=== PATIENT | male | born 1975 | race Caucasian/White ===

== ENCOUNTER 2016-09-08 18:23 | Emergency (ER) | payer SELFPAY ==
[2016-09-08] MEDS ORDERED: Ketorolac 60 MG/2 ML SDV IM ONE (18:42)
--- NOTE | 2016-09-08 18:47 | EDM.PDOC ---
Addendum entered and electronically signed by Ana Parry PA 09/08/16 19:35: I saw the patient and discussed the xray findings with him. There was no evidence of fracture. Symptoms more consistent with foot contusion. We discussed additional home management and possible follow up with podiatry if needed. The patient had no additional concerns or requests and was comfortable with diagnosis and plan. Original Note: ED HPI Trauma - General Chief Complaint: Lower Extremity Injury/Pain Stated Complaint: PT HURT RT FOOT Time Seen by Provider: 09/08/16 18:34 - History of Present Illness INITIAL COMMENTS - FREE TEXT/NARRATIVE: HISTORY AND PHYSICAL: History of present illness: The patient is a 40-year-old male with no stated medical problems who was in his usual state of good health when on Wednesday, 2 days ago, he was carrying a small table at home and he dropped it on his beer right foot. he had immediate pain and it seemed to be better by Wednesday night. The patient states that he took some Tylenol and he tried ice and elevate it. Patient denies any other injuries to his extremities and no other systemic complaints. He has no neurosensory changes in his foot or toes. He said he returned to work yesterday and had to wear steel toe boots and it seemed that after yesterday at work the pain seemed to be worse and that continued into today. Review of systems: As per history of present illness and below otherwise all systems reviewed and negative. Past medical history: As per history of present illness and as reviewed below otherwise noncontributory. Surgical history: As per history of present illness and as reviewed below otherwise noncontributory. Social history: No reported history of drug or alcohol abuse. Family history: As per history of present illness and as reviewed below otherwise noncontributory. Physical exam: General: Well-developed well-nourished man who is nontoxic and speaking clearly and easily ; vital signs as noted by me HEENT: Atraumatic, normocephalic, negative for conjunctival pallor or scleral icterus, mucous membranes moist, throat clear, neck supple, nontender, trachea midline. Lungs: Clear to auscultation, breath sounds equal bilaterally, chest nontender. Heart: S1S2, regular rate and rhythm no overt murmurs Abdomen: Soft, nondistended, nontender. NABS Pelvis: Stable nontender. Genitourinary: Deferred. Rectal: Deferred. Extremities: Atraumatic throughout lower extremities with the exception of the dorsal aspect of the right foot where there is minimal soft tissue swelling and tenderness without palpable bony deformities or crepitus and minimal erythema without ecchymosis. The distal toes are without tenderness or defects in the proximal ankle and tib-fib are also without tenderness swelling or bony deformities, the legs are, negative for cords or calf pain. Neurovascular unremarkable. Neuro: Awake, alert, oriented. Cranial nerves II through XII unremarkable. Cerebellum unremarkable. Motor and sensory unremarkable throughout. Exam nonfocal. Diagnostics: X-ray of right foot Therapeutics: Toradol, postop shoe Impression: Right foot injury/contusion Definitive disposition and diagnosis as appropriate pending reevaluation and review of above. Allergies/ADRs: Allergies No Known Allergies Allergy (Verified 09/08/16 18:40) Home Medications: Ambulatory Orders . [No Known Home Meds] 09/08/16 [Confirmed 09/08/16] Past Medical History - Past Health History Medical/Surgical History: Denies Medical/Surgical History - Infectious Disease History Infectious Disease History: Reports: Chicken pox Social & Family History - Family History Family Medical History: Noncontributory - Tobacco Use Smoking Status *Q: Never Smoker - Caffeine Use Caffeine Use: Reports: None - Recreational Drug Use Recreational Drug Use: No Review of Systems - Review of Systems Review Of Systems: ROS reveals no pertinent complaints other than HPI. Trauma Exam - Physical Exam Exam: See Below (See dictation) Course - Vital Signs Last Recorded V/S: Last Vital Signs Temp 37.0 C 09/08/16 18:37 Pulse 66 09/08/16 18:37 Resp 18 09/08/16 18:37 BP 141/77 H 09/08/16 18:37 Pulse Ox 94 L 09/08/16 18:37 - Orders/Labs/Meds Orders: Active Orders 24 hr Category Date Time Status Foot Comp Min 3V Rt [CR] Stat Exams 09/08/16 18:42 Ordered Meds: Medications Discontinued Medications Generic Name Dose Route Start Last Admin Trade Name Freq PRN Reason Stop Dose Admin Ketorolac Tromethamine 60 mg 09/08/16 18:42 09/08/16 18:49 Toradol IM 09/08/16 18:43 60 mg ONETIME ONE Administration Departure - Departure Time of Disposition: 19:06 Disposition: Home, Self-Care 01 Condition: good Clinical Impression: Right foot injury Qualifiers: Encounter type: initial encounter Qualified Code(s): S99.921A - Unspecified injury of right foot, initial encounter Referrals: PCP,None [Primary Care Provider] - Forms: ED Department Discharge Additional Instructions: The following information is given to patients seen in the emergency department who are being discharged to home. This information is to outline your options for follow-up care. We provide all patients seen in our emergency department with a follow-up referral. The need for follow-up, as well as the timing and circumstances, are variable depending upon the specifics of your emergency department visit. If you don't have a primary care physician on staff, we will provide you with a referral. We always advise you to contact your personal physician following an emergency department visit to inform them of the circumstance of the visit and for follow-up with them and/or the need for any referrals to a consulting specialist. The emergency department will also refer you to a specialist when appropriate. This referral assures that you have the opportunity for followup care with a specialist. All of these measure are taken in an effort to provide you with optimal care, which includes your followup. Under all circumstances we always encourage you to contact your private physician who remains a resource for coordinating your care. When calling for followup care, please make the office aware that this follow-up is from your recent emergency room visit. If for any reason you are refused follow-up, please contact the [facility] emergency department at and ask to speak to the emergency department charge nurse. [facility] Primary care- Internal Medicine and Family Pr[facility] [address] [place] [address] Richie Jose [address] [address] [facility] Specialty clinic- Podiatry [address] [place] [address] Fax: [phone] Ice and elevate the area and use postop shoe while at work. Use over-the- counter Tylenol/ibuprofen for pain and followup with one of our podiatrists or your family using resources given to today. Return to ER as needed and as discussed. - My Orders Last 24 Hours: My Active Orders 09/08/16 18:42 Foot Comp Min 3V Rt [CR] Stat - Assessment/Plan Last 24 Hours: My Active Orders 09/08/16 18:42 Foot Comp Min 3V Rt [CR] Stat
[2016-09-08 19:53] VITALS: BP 120/74
--- NOTE | 2016-09-09 14:45 | CR ---
EXAM DATE: 09/08/16 PATIENT'S AGE: 40 Patient: ALEXANDRA GÓMEZ Facility: [place], [place] Site . Site : 1975 Study: XRay Extremity foot [id number]/21/2017 7:19:29 PM Ordering Physician: Johana Mendez Final Report: INDICATION: Object dropped on foot. Technique: Three views of the right foot. Impression: Lateral view suggests some proximal dorsal swelling. Correlate with clinical exam. No displaced fractures of the right foot are visualized. Alignment of the right foot appear normal. Dictated by Henri Swan MD @ Sep 08 2016 7:28PM (Electronic Signature) Report Signed by Proxy and Original Signed Document filed in the Medical Record. MTDD
== END 2016-09-08 19:50 | disposition home or self-care (01) ==
LOC: MW.ED 18:23
DX: S99.921A Unspecified injury of right foot, initial encounter (principal); W20.8XXA Other cause of strike by thrown, projected or falling object, initial encounter
CPT/HCPCS: 73630; 96372; 99283; J1885

== ENCOUNTER → 2016-09-29 | Outpatient (CLI) | payer SELFPAY ==
[2016-09-29 11:46] LABS: CHLORIDE,CL 103 mmol/L (98-110); SODIUM,NA 136 mmol/L (136-146)
== END ==
LOC: MW.CHFP 10:58
PROVIDERS: ATTEND Physician Assistant
DX: R11.2 Nausea with vomiting, unspecified (principal); J02.9 Acute pharyngitis, unspecified
CPT/HCPCS: 36415; 80048; 80076; 83690; 85025; 87081; 87880

== ENCOUNTER 2017-07-05 16:15 | Emergency (ER) | payer SELFPAY ==
[2017-07-05] MEDS ORDERED: methylPREDNISolone Sodium Succinate 125 MG/2 ML SDV IM ONE (17:25)
[2017-07-05] MEDS ORDERED: methylPREDNISolone Sodium Succinate 125 MG/2 ML SDV ONE (17:40)
--- NOTE | 2017-07-05 17:46 | EDM.PDOC ---
ED HPI GENERAL MEDICAL PROBLEM - General Chief Complaint: Skin Complaint Stated Complaint: RASH Time Seen by Provider: 07/05/17 17:20 Source of Information: Reports: Patient History Limitations: Reports: No Limitations - History of Present Illness INITIAL COMMENTS - FREE TEXT/NARRATIVE: HISTORY AND PHYSICAL: History of present illness: [Patient comes to the emergency room complaining of rash to bilateral inner forearms. Has been present for the past 3 days. He describes this as very itchy area no fever or chills. No other complaints or concerns. He's otherwise been feeling well. Recently was diagnosed with ringworm to the dorsum of his left hand which has completely resolved. Denies any new body wash, soap, laundry detergent or lotion.] Review of systems: As per history of present illness and below otherwise all systems reviewed and negative. Past medical history: As per history of present illness and as reviewed below otherwise noncontributory. Surgical history: As per history of present illness and as reviewed below otherwise noncontributory. Social history: No reported history of drug or alcohol abuse. Family history: As per history of present illness and as reviewed below otherwise noncontributory. Physical exam: HEENT: Atraumatic, normocephalic. Skin: Maculopapular erythematous blanching rash to bilateral inner forearms. Nontender with palpation. Secondary changes present due to scratching. No dry flaky skin in order weeping of lesions. Neurovascular unremarkable. Neuro: Awake, alert, oriented. Cranial nerves II through XII unremarkable. Cerebellum unremarkable. Motor and sensory unremarkable throughout. Exam nonfocal. Therapeutics: [Solu-Medrol 125mg IM] Impression: [rash] Plan: [Patient is given Solu-Medrol 125 mg IM in the ER today. Recommend over-the- counter hydrocortisone cream to affected area. Follow-up with primary care. He is in agreement with today's plan verbalized understanding.] Definitive disposition and diagnosis as appropriate pending reevaluation and review of above. Bilateral Arm Pain Score (Numeric/FACES): 3 - Related Data Allergies Allergy/AdvReac Type Severity Reaction Status Date / Time No Known Allergies Allergy Verified 07/05/17 17:01 Home Meds: Home Meds . [No Known Home Meds] 09/08/16 [History] Past Medical History - Past Health History Medical/Surgical History: Denies Medical/Surgical History - Infectious Disease History Infectious Disease History: Reports: Chicken Pox Social & Family History - Family History Family Medical History: Noncontributory - Tobacco Use Smoking Status *Q: Never Smoker - Caffeine Use Caffeine Use: Reports: Energy Drinks, Soda - Recreational Drug Use Recreational Drug Use: No ED ROS GENERAL - Review of Systems Review Of Systems: ROS reveals no pertinent complaints other than HPI. ED EXAM, SKIN/RASH Exam: See Below Course - Vital Signs Last Recorded V/S: Last Vital Signs Temp 99.1 F 07/05/17 16:57 Pulse 60 07/05/17 16:57 Resp 18 07/05/17 16:57 BP 128/79 07/05/17 16:57 Pulse Ox 96 07/05/17 16:57 - Orders/Labs/Meds Meds: Medications Discontinued Medications Generic Name Dose Route Start Last Admin Trade Name Freq PRN Reason Stop Dose Admin Methylprednisolone Sodium Succinate 125 mg 07/05/17 17:25 07/05/17 17:42 Solu-Medrol IM 07/05/17 17:26 125 mg ONETIME ONE Administration Methylprednisolone Sodium Succinate Confirm 07/05/17 17:40 07/05/17 17:53 Solu-Medrol Administered 07/05/17 17:41 Not Given Dose 125 mg .ROUTE .STK-MED ONE Departure - Departure Time of Disposition: 17:50 Disposition: Home, Self-Care 01 Condition: Good Clinical Impression: Rash - Discharge Information Referrals: PCP,None [Primary Care Provider] - Forms: ED Department Discharge Additional Instructions: The following information is given to patients seen in the emergency department who are being discharged to home. This information is to outline your options for follow-up care. We provide all patients seen in our emergency department with a follow-up referral. The need for follow-up, as well as the timing and circumstances, are variable depending upon the specifics of your emergency department visit. If you don't have a primary care physician on staff, we will provide you with a referral. We always advise you to contact your personal physician following an emergency department visit to inform them of the circumstance of the visit and for follow-up with them and/or the need for any referrals to a consulting specialist. The emergency department will also refer you to a specialist when appropriate. This referral assures that you have the opportunity for follow-up care with a specialist. All of these measure are taken in an effort to provide you with optimal care, which includes your follow-up. Under all circumstances we always encourage you to contact your private physician who remains a resource for coordinating your care. When calling for follow-up care, please make the office aware that this follow-up is from your recent emergency room visit. If for any reason you are refused follow-up, please contact the [facility] emergency department at and asked to speak to the emergency department charge nurse. [facility] Primary Care [address] [place] [id number] Follow-up with regular primary care provider or at the clinic listed above in 48 -72 hours. Calamine lotion, oatmeal baths, hydrocortisone cream may help relieve your symptoms. Return to ER as needed as discussed.
[2017-07-05 18:14] VITALS: BP 116/53
== END 2017-07-05 18:13 | disposition home or self-care (01) ==
LOC: MW.ED 16:15
DX: R21 Rash and other nonspecific skin eruption (principal)
CPT/HCPCS: 96372; 99282; J2930

== ENCOUNTER 2018-02-05 16:57 | Emergency (ER) | payer BC ==
[2018-02-05 17:14] VITALS: BP 120/70
--- NOTE | 2018-02-05 17:24 | EDM.PDOC ---
ED HPI GENERAL MEDICAL PROBLEM - General Chief Complaint: Upper Extremity Injury/Pain Stated Complaint: LT PADMINI HUSSEIN Time Seen by Provider: 02/05/18 17:20 Source of Information: Reports: Patient History Limitations: Reports: No Limitations - History of Present Illness INITIAL COMMENTS - FREE TEXT/NARRATIVE: HISTORY AND PHYSICAL: History of present illness: 42-year-old male here with complaint of left elbow pain. He states that 2 days ago he hit his elbow on his jeep. He reports he woke up this morning and his elbow was swollen and more painful. He took some Motrin this morning for the pain without relief. Review of systems: As per history of present illness and below otherwise all systems reviewed and negative. Past medical history: As per history of present illness and as reviewed below otherwise noncontributory. Surgical history: As per history of present illness and as reviewed below otherwise noncontributory. Social history: No reported history of drug or alcohol abuse. Family history: As per history of present illness and as reviewed below otherwise noncontributory. Physical exam: General: Patient sitting comfortably in no acute distress HEENT: Atraumatic, normocephalic, pupils reactive, negative for conjunctival pallor or scleral icterus, mucous membranes moist, throat clear, neck supple, nontender, trachea midline. Lungs: Clear to auscultation, breath sounds equal bilaterally, chest nontender. Heart: S1S2, regular, negative for clicks, rubs, or JVD. Abdomen: Soft, nondistended, nontender. Negative for masses or hepatosplenomegaly. Negative for costovertebral tenderness. Pelvis: Stable nontender. Genitourinary: Deferred. Rectal: Deferred. Extremities: No obvious swelling or deformity of the left elbow. Skin is intact. Tender to palpation of the left olecranon. Pain with flexion and extension of the elbow. negative for cords or calf pain. Neurovascular unremarkable. Neuro: Awake, alert, oriented. Cranial nerves II through XII unremarkable. Cerebellum unremarkable. Motor and sensory unremarkable throughout. Exam nonfocal. Notes: Diagnostics: x-ray left elbow Therapeutics: [] Impression: Left elbow contusion Plan: 1. Take motrin and tylenol as needed. May wear sling for comfort. 2. Follow up with primary care provider 3. Return to ED as needed as discussed Definitive disposition and diagnosis as appropriate pending reevaluation and review of above. Left Elbow Pain Score (Numeric/FACES): 9 - Related Data Allergies Allergy/AdvReac Type Severity Reaction Status Date / Time No Known Allergies Allergy Verified 02/05/18 17:16 Home Meds: Home Meds . [No Known Home Meds] 09/08/16 [History] Past Medical History - Past Health History Medical/Surgical History: Denies Medical/Surgical History HEENT History: Reports: None Cardiovascular History: Reports: None Respiratory History: Reports: None Gastrointestinal History: Reports: None Genitourinary History: Reports: None Musculoskeletal History: Reports: None Neurological History: Reports: None Psychiatric History: Reports: None Endocrine/Metabolic History: Reports: None Hematologic History: Reports: None Immunologic History: Reports: None Oncologic (Cancer) History: Reports: None Dermatologic History: Reports: None - Infectious Disease History Infectious Disease History: Reports: None - Past Surgical History Head Surgeries/Procedures: Reports: None Male Surgical History: Reports: None Social & Family History - Family History Family Medical History: Noncontributory - Caffeine Use Caffeine Use: Reports: None - Recreational Drug Use Recreational Drug Use: No Review of Systems - Review of Systems Review Of Systems: ROS reveals no pertinent complaints other than HPI. ED EXAM, GENERAL - Physical Exam Exam: See Below (see dictation) Course - Vital Signs Last Recorded V/S: Last Vital Signs Temp 37.0 C 02/05/18 17:13 Pulse 70 02/05/18 17:13 Resp 18 02/05/18 17:13 BP 120/70 02/05/18 17:13 Pulse Ox 97 02/05/18 17:13 - Orders/Labs/Meds Orders: Active Orders 24 hr Category Date Time Status Elbow Min 3V Lt [CR] Stat Exams 02/05/18 17:21 Taken Departure - Departure Time of Disposition: 18:05 Disposition: Home, Self-Care 01 Condition: Good Clinical Impression: Left elbow contusion - Discharge Information Referrals: PCP,None [Primary Care Provider] - Forms: ED Department Discharge Additional Instructions: The following information is given to patients seen in the emergency department who are being discharged to home. This information is to outline your options for follow-up care. We provide all patients seen in our emergency department with a follow-up referral. The need for follow-up, as well as the timing and circumstances, are variable depending upon the specifics of your emergency department visit. If you don't have a primary care physician on staff, we will provide you with a referral. We always advise you to contact your personal physician following an emergency department visit to inform them of the circumstance of the visit and for follow-up with them and/or the need for any referrals to a consulting specialist. The emergency department will also refer you to a specialist when appropriate. This referral assures that you have the opportunity for follow-up care with a specialist. All of these measure are taken in an effort to provide you with optimal care, which includes your follow-up. Under all circumstances we always encourage you to contact your private physician who remains a resource for coordinating your care. When calling for follow-up care, please make the office aware that this follow-up is from your recent emergency room visit. If for any reason you are refused follow-up, please contact the [facility] Emergency Department at and asked to speak to the emergency department charge nurse. [facility] Primary Care [address] [place] [address] [place] [address] 1. Take motrin and tylenol as needed. May wear sling for comfort. 2. Follow up with primary care provider 3. Return to ED as needed as discussed - My Orders Last 24 Hours: My Active Orders 02/05/18 17:21 Elbow Min 3V Lt [CR] Stat - Assessment/Plan Last 24 Hours: My Active Orders 02/05/18 17:21 Elbow Min 3V Lt [CR] Stat
--- NOTE | 2018-02-07 13:03 | CR ---
EXAM DATE: 02/05/18 PATIENT'S AGE: 42 Patient: ALEXANDRA GÓMEZ Facility: [place], [place] Site . Site : 1975 Study: XRay Extremity Left elbow [id number]/18/2018 6:00:09 PM Ordering Physician: Doctor Ricardo Final Report: Indication: Hit elbow NG door 2 days ago. Technique: Three views of the left elbow were obtained. Comparison: None Findings: No acute fracture subluxation is identified. The joint spaces are well maintained. A significant joint effusion is not appreciated. Impression: No acute fracture. Dictated by Dori Jensen MD @ Feb 05 2018 6:01PM (Electronic Signature) Report Signed by Proxy. TRE
== END 2018-02-05 18:22 | disposition home or self-care (01) ==
LOC: MW.ED 16:57
DX: S50.02XA Contusion of left elbow, initial encounter (principal); W22.8XXA Striking against or struck by other objects, initial encounter
CPT/HCPCS: 73080-26-LT; 73080-LT; 99283

== ENCOUNTER 2018-12-26 19:08 | Emergency (ER) | payer BC ==
[2018-12-26] MEDS ORDERED: methylPREDNISolone Sodium Succinate 125 MG/2 ML SDV IM ONE (19:39)
[2018-12-26] MEDS ORDERED: Albuterol/Ipratropium 3.0-0.5 MG/3 ML Neb Soln NEB ONE (19:40)
--- NOTE | 2018-12-26 19:43 | EDM.PDOC ---
ED HPI GENERAL MEDICAL PROBLEM - General Chief Complaint: General Stated Complaint: COUGH, SORE THOAT, HEADACHES Time Seen by Provider: 12/26/18 19:35 Source of Information: Reports: Patient History Limitations: Reports: No Limitations - History of Present Illness INITIAL COMMENTS - FREE TEXT/NARRATIVE: HISTORY AND PHYSICAL: History of present illness: Patient is a 43-year-old male presents to the ED today with concern of cough and sore throat 3-4 days. Patient states he's been taking [id number] medication for symptomatic relief. Patient denies any health history. Patient does not smoke or use any substances. Patient denies any other symptoms at this time. Patient denies fever, chills, chest pain, shortness of breath.. Denies headache , neck stiff ness, change in vision, syncope, or near syncope. Denies nausea, vomiting, abdominal pain, diarrhea, constipation, or dysuria. Has not noted any blood in urine or stool. Patient has been eating and drinking appropriately. Review of systems: As per history of present illness and below otherwise all systems reviewed and negative. Past medical history: As per history of present illness and as reviewed below otherwise noncontributory. Surgical history: As per history of present illness and as reviewed below otherwise noncontributory. Social history: See social history for further information Family history: As per history of present illness and as reviewed below otherwise noncontributory. Physical exam: General: Patient is alert, oriented, and in no acute distress. Patient sitting comfortably on exam table. HEENT: Atraumatic, normocephalic, pupils equal and reactive bilaterally, negative for conjunctival pallor or scleral icterus, mucous membranes moist, TMs normal bilaterally, throat clear, neck supple, nontender, trachea midline. No drooling or trismus noted. No meningeal signs. No hot potato voice noted. Lungs: Clear to auscultation, breath sounds equal bilaterally, chest nontender. Dry/tight cough on exam Heart: S1S2, regular rate and rhythm without overt murmur Abdomen: Soft, nondistended, nontender. Negative for masses or hepatosplenomegaly. Negative for costovertebral tenderness. Pelvis: Stable nontender. Genitourinary: Deferred. Rectal: Deferred. Skin: Intact, warm, dry. No lesions or rashes noted. Extremities: Atraumatic, negative for cords or calf pain. Neurovascular unremarkable. Neuro: Awake, alert, oriented. Cranial nerves II through XII unremarkable. Cerebellum unremarkable. Motor and sensory unremarkable throughout. Exam nonfocal. Notes: Discussed the importance for follow-up with primary care provider. Voices understanding and is agreeable to plan of care. Denies any further questions or concerns at this time. Diagnostics: Strep, chest x-ray Therapeutics: Duoneb, Solumedrol Prescription: Proair inhaler, Medrol dose pack Impression: Bronchitis Pharyngitis, unspecified Plan: 1. Take medication as prescribed. You can alternate ibuprofen and Tylenol as directed for pain and discomfort. 2. Follow-up with a primary care provider as discussed. Return to the ED as needed and as discussed. Definitive disposition and diagnosis as appropriate pending reevaluation and review of above. throat Pain Score (Numeric/FACES): 9 - Related Data Allergies Allergy/AdvReac Type Severity Reaction Status Date / Time No Known Allergies Allergy Verified 12/26/18 19:37 Home Meds: Home Meds . [No Known Home Meds] 09/08/16 [History] Past Medical History - Past Health History Medical/Surgical History: Denies Medical/Surgical History HEENT History: Reports: None, Impaired Vision, Other (See Below) Other HEENT History: wears glasses Cardiovascular History: Reports: None Respiratory History: Reports: None Gastrointestinal History: Reports: None Genitourinary History: Reports: None Musculoskeletal History: Reports: None Neurological History: Reports: None Psychiatric History: Reports: None Endocrine/Metabolic History: Reports: None Hematologic History: Reports: None Immunologic History: Reports: None Oncologic (Cancer) History: Reports: None Dermatologic History: Reports: None - Infectious Disease History Infectious Disease History: Reports: None - Past Surgical History Head Surgeries/Procedures: Reports: None Male Surgical History: Reports: None Musculoskeletal Surgical History: Reports: Other (See Below) Other Musculoskeletal Surgeries/Procedures:: left wrist sx Social & Family History - Family History Family Medical History: Noncontributory - Tobacco Use Smoking Status *Q: Never Smoker - Caffeine Use Caffeine Use: Reports: None - Recreational Drug Use Recreational Drug Use: No ED ROS GENERAL - Review of Systems Review Of Systems: ROS reveals no pertinent complaints other than HPI. ED EXAM, GENERAL - Physical Exam Exam: See Below (See dictation) Course - Vital Signs Last Recorded V/S: Last Vital Signs Temp 37.2 C 12/26/18 19:23 Pulse 100 12/26/18 19:23 Resp 20 12/26/18 19:23 BP 155/85 H 12/26/18 19:23 Pulse Ox 96 12/26/18 19:23 - Orders/Labs/Meds Orders: Active Orders 24 hr Category Date Time Status RT Aerosol Therapy [RC] ASDIRECTED Care 12/26/18 19:40 Active CULTURE STREP A CONFIRMATION [] Stat Lab 12/26/18 19:40 Results STREP SCRN A RAPID W CULT CONF [] Stat Lab 12/26/18 19:40 Results Meds: Medications Discontinued Medications Generic Name Dose Route Start Last Admin Trade Name Freq PRN Reason Stop Dose Admin Albuterol/Ipratropium 3 ml 12/26/18 19:40 12/26/18 19:47 Duoneb 3.0-0.5 Mg/3 Ml NEB 12/26/18 19:41 3 ml ONETIME ONE Administration Methylprednisolone Sodium Succinate 125 mg 12/26/18 19:39 12/26/18 19:49 Solu-Medrol IM 12/26/18 19:40 125 mg ONETIME ONE Administration Departure - Departure Time of Disposition: 20:23 Disposition: Home, Self-Care 01 Clinical Impression: Bronchitis - Discharge Information Referrals: PCP,None [Primary Care Provider] - Forms: ED Department Discharge Additional Instructions: The following information is given to patients seen in the emergency department who are being discharged to home. This information is to outline your options for follow-up care. We provide all patients seen in our emergency department with a follow-up referral. The need for follow-up, as well as the timing and circumstances, are variable depending upon the specifics of your emergency department visit. If you don't have a primary care physician on staff, we will provide you with a referral. We always advise you to contact your personal physician following an emergency department visit to inform them of the circumstance of the visit and for follow-up with them and/or the need for any referrals to a consulting specialist. The emergency department will also refer you to a specialist when appropriate. This referral assures that you have the opportunity for follow-up care with a specialist. All of these measure are taken in an effort to provide you with optimal care, which includes your follow-up. Under all circumstances we always encourage you to contact your private physician who remains a resource for coordinating your care. When calling for follow-up care, please make the office aware that this follow-up is from your recent emergency room visit. If for any reason you are refused follow-up, please contact the [facility] Emergency Department at and asked to speak to the emergency department charge nurse. [facility] [address] [place] [id number] [facility] [address] [place] [id number] 1. Take medication as prescribed. You can alternate ibuprofen and Tylenol as directed for pain and discomfort. 2. Follow-up with a primary care provider as discussed. Return to the ED as needed and as discussed. - My Orders Last 24 Hours: My Active Orders 12/26/18 19:40 RT Aerosol Therapy [RC] ASDIRECTED CULTURE STREP A CONFIRMATION [RM] Stat STREP SCRN A RAPID W CULT CONF [RM] Stat - Assessment/Plan Last 24 Hours: My Active Orders 12/26/18 19:40 RT Aerosol Therapy [RC] ASDIRECTED CULTURE STREP A CONFIRMATION [RM] Stat STREP SCRN A RAPID W CULT CONF [RM] Stat
--- NOTE | 2018-12-26 20:21 | CR ---
INDICATION: pain, sob, cough x2 days TECHNIQUE: Chest 2 views. COMPARISON: None. FINDINGS: Cardiovascular and mediastinum: Heart size and vasculature are normal in caliber and appearance. Mediastinum is within normal limits. Lungs and pleural spaces: Lungs are clear. No sign of infiltrate or mass. No sign of pleural effusion. No pneumothorax. Bones and soft tissues: No significant findings. IMPRESSION: Unremarkable chest. Dictated by: Reed Morales MD @ 12/26/2018 20:20:49 (Electronically Signed)
[2018-12-26 20:36] VITALS: BP 119/79
== END 2018-12-26 20:36 | disposition home or self-care (01) ==
LOC: MW.ED 19:08
DX: J40 Bronchitis, not specified as acute or chronic (principal); J02.9 Acute pharyngitis, unspecified
CPT/HCPCS: 71046; 87081; 87880; 94640; 96372; 99283; J2930; J7620-GY

== ENCOUNTER 2019-01-01 18:51 | Emergency (ER) | payer BC ==
--- NOTE | 2019-01-01 19:44 | EDM.PDOC ---
ED HPI GENERAL MEDICAL PROBLEM - General Chief Complaint: ENT Problem Stated Complaint: RINGING RIGHT EAR Time Seen by Provider: 01/01/19 19:30 Source of Information: Reports: Patient History Limitations: Reports: No Limitations - History of Present Illness INITIAL COMMENTS - FREE TEXT/NARRATIVE: History of present illness: []Patient was treated for bronchitis a week ago with prednisone no antibiotics and now he has ringing in his right ear with pain. No fevers, chills, nausea vomiting or diarrhea. Review of systems: As per history of present illness and below otherwise all systems reviewed and negative. Past medical history: As per history of present illness and as reviewed below otherwise noncontributory. Surgical history: As per history of present illness and as reviewed below otherwise noncontributory. Social history: No reported history of drug or alcohol abuse. Family history: As per history of present illness and as reviewed below otherwise noncontributory. Physical exam: General: Well developed, well nourished in NAD HEENT: Atraumatic, normocephalic, pupils reactive, negative for conjunctival pallor or scleral icterus, mucous membranes moist, throat clear, neck supple, nontender, trachea midline. Right TM erythematous and bulging left TM normal Lungs: Clear to auscultation, breath sounds equal bilaterally, chest nontender. Heart: S1S2, regular, negative for clicks, rubs, or JVD. Abdomen: NABS, Soft, nondistended, nontender. Negative for masses or hepatosplenomegaly. Negative for costovertebral tenderness. Pelvis: Stable nontender. Genitourinary: Deferred. Rectal: Deferred. Extremities: Atraumatic, negative for cords or calf pain. Neurovascular unremarkable. Neuro: Awake, alert, oriented. Cranial nerves II through XII unremarkable. Cerebellum unremarkable. Motor and sensory unremarkable throughout. Exam nonfocal. Skin:warm and dry Diagnostics: None Therapeutics: None ED Course: Stable Impression: Right otitis media Prescriptions: amoxacillin 3 times a day for 10 days Plan: Take meds as directed, follow up with your primary care physician, return to ER if symptoms worsen or change. Definitive disposition and diagnosis as appropriate pending reevaluation and review of above. Right Ear Pain Score (Numeric/FACES): 9 - Related Data Allergies Allergy/AdvReac Type Severity Reaction Status Date / Time No Known Allergies Allergy Verified 01/01/19 19:26 Home Meds: Home Meds . [No Known Home Meds] 09/08/16 [History] Past Medical History - Past Health History Medical/Surgical History: Denies Medical/Surgical History HEENT History: Reports: None, Impaired Vision, Other (See Below) Other HEENT History: wears glasses Cardiovascular History: Reports: None Respiratory History: Reports: None Gastrointestinal History: Reports: None Genitourinary History: Reports: None Musculoskeletal History: Reports: None Neurological History: Reports: None Psychiatric History: Reports: None Endocrine/Metabolic History: Reports: None Hematologic History: Reports: None Immunologic History: Reports: None Oncologic (Cancer) History: Reports: None Dermatologic History: Reports: None - Infectious Disease History Infectious Disease History: Reports: None - Past Surgical History Head Surgeries/Procedures: Reports: None Male Surgical History: Reports: None Musculoskeletal Surgical History: Reports: Other (See Below) Other Musculoskeletal Surgeries/Procedures:: left wrist sx Social & Family History - Family History Family Medical History: Noncontributory - Tobacco Use Smoking Status *Q: Never Smoker Second Hand Smoke Exposure: No - Caffeine Use Caffeine Use: Reports: None - Alcohol Use Days Per Week of Alcohol Use: 2 Number of Drinks Per Day: 4 Total Drinks Per Week: 8 - Recreational Drug Use Recreational Drug Use: No ED ROS ENT - Review of Systems Review Of Systems: See Below ED EXAM, ENT - Physical Exam Exam: See Below Course - Vital Signs Last Recorded V/S: Last Vital Signs Temp 96.6 F 01/01/19 19:24 Pulse 82 01/01/19 19:24 Resp 18 01/01/19 19:24 BP 138/80 01/01/19 19:24 Pulse Ox 98 01/01/19 19:24 Departure - Departure Time of Disposition: 19:43 Disposition: Home, Self-Care 01 Condition: Good Clinical Impression: Right otitis externa Qualifiers: Otitis externa type: unspecified type Chronicity: acute Qualified Code(s): H60.501 - Unspecified acute noninfective otitis externa, right ear - Discharge Information *PRESCRIPTION DRUG MONITORING PROGRAM REVIEWED*: No *COPY OF PRESCRIPTION DRUG MONITORING REPORT IN PATIENT GHANSHYAM: No Referrals: PCP,None [Primary Care Provider] - Additional Instructions: The following information is given to patients seen in the emergency department who are being discharged to home. This information is to outline your options for follow-up care. We provide all patients seen in our emergency department with a follow-up referral. The need for follow-up, as well as the timing and circumstances, are variable depending upon the specifics of your emergency department visit. If you don't have a primary care physician on staff, we will provide you with a referral. We always advise you to contact your personal physician following an emergency department visit to inform them of the circumstance of the visit and for follow-up with them and/or the need for any referrals to a consulting specialist. The emergency department will also refer you to a specialist when appropriate. This referral assures that you have the opportunity for follow-up care with a specialist. All of these measure are taken in an effort to provide you with optimal care, which includes your follow-up. Under all circumstances we always encourage you to contact your private physician who remains a resource for coordinating your care. When calling for follow-up care, please make the office aware that this follow-up is from your recent emergency room visit. If for any reason you are refused follow-up, please contact the [facility] Emergency Department at and asked to speak to the emergency department charge nurse. Take meds as directed, follow up with your primary care physician, return to ER if symptoms worsen or change. [facility] [address] [place] [id number]
[2019-01-02 00:09] VITALS: BP 119/90
== END 2019-01-01 19:47 | disposition home or self-care (01) ==
LOC: MW.ED 18:51
DX: H60.501 Unspecified acute noninfective otitis externa, right ear (principal)
CPT/HCPCS: 99282

== ENCOUNTER 2019-08-20 15:12 | Emergency (ER) | payer BC ==
[2019-08-20 15:26] VITALS: BP 133/81; PULSE 55
--- NOTE | 2019-08-20 15:36 | EDM.PDOC ---
ED HPI GENERAL MEDICAL PROBLEM - General Chief Complaint: Upper Extremity Injury/Pain Stated Complaint: RIGHT WRIST PAIN Time Seen by Provider: 08/20/19 15:31 Source of Information: Reports: Patient History Limitations: Reports: No Limitations - History of Present Illness INITIAL COMMENTS - FREE TEXT/NARRATIVE: HISTORY AND PHYSICAL: History of present illness: Patient is a 43-year-old male who presents to the emergency room with complaints of right wrist pain over the past few days. He states he has been using for comfort but feels it is not improving. Denies any injury or trauma of the affected extremity. States he intermittently gets some light numbness to his fingertips of the first 3 digits. He is right-handed and at work does perform a lot of repetitive motions. Patient denies any fever, chills, headache, change in vision, syncope or near syncope. Denies any chest pain, back pain, shortness of breath or cough. Denies any GI or symptoms. Patient has been eating and drinking appropriately. Review of systems: As per history of present illness and below otherwise all systems reviewed and negative. Past medical history: As per history of present illness and as reviewed below otherwise noncontributory. Surgical history: As per history of present illness and as reviewed below otherwise noncontributory. Social history: See social history for further information Family history: As per history of present illness and as reviewed below otherwise noncontributory. Physical exam: General: Well-developed and well-nourished 43-year-old male. Alert and oriented. Nontoxic appearing and in no acute distress. HEENT: Atraumatic, normocephalic, pupils equal and reactive bilaterally, negative for conjunctival pallor or scleral icterus, mucous membranes moist, trachea midline. No drooling or trismus noted. No meningeal signs. No hot potato voice noted. Lungs: Clear to auscultation, breath sounds equal bilaterally. Heart: S1S2, regular rate and rhythm without overt murmur Skin: Intact, warm, dry. No erythema or soft tissue swelling. No lesions or rashes noted. Extremities: Atraumatic, moves all extremities per self without difficulty or deficits, strong radial pulse. Cap refill less than 3 seconds. +CMS. Neurovascular unremarkable. Neuro: Awake, alert, oriented. Cranial nerves II through XII unremarkable. Cerebellum unremarkable. Motor and sensory unremarkable throughout. Exam nonfocal. Notes: X-ray is negative. Patient's symptoms are consistent with carpal tunnel. Will place patient in a cock-up wrist splint for comfort purposes and relieve pressure off of the nerve. Would like him to wear for 1-2 weeks. Encouraged him to follow up with primary care or hand surgeon if pain continues. Supportive care measures were reviewed and discussed. Voices understanding and is agreeable to plan of care. Denies any further questions or concerns at this time. Diagnostics: X-ray Therapeutics: Cock-up wrist splint Prescription: Diclofenac Impression: Right wrist pain, rule out carpel tunnel Plan: 1. Rest, ice, elevate the affected extremity. Will place patient in a cock-up wrist splint for comfort purposes and relieve pressure off of the median nerve. Would like you to wear for 1-2 weeks (Can wear at night and then when your most active during the day). 2. Tylenol and/or Ibuprofen as needed for pain management. 3. Please follow up with primary care or hand surgeon if pain continues. Return to the ED as needed and as discussed. Definitive disposition and diagnosis as appropriate pending reevaluation and review of above. Right Wrist Pain Score (Numeric/FACES): 8 - Related Data Allergies Allergy/AdvReac Type Severity Reaction Status Date / Time No Known Allergies Allergy Verified 08/20/19 15:23 Home Meds: Home Meds . [No Known Home Meds] 09/08/16 [History] Past Medical History - Past Health History Medical/Surgical History: Denies Medical/Surgical History HEENT History: Reports: None, Impaired Vision, Other (See Below) Other HEENT History: wears glasses Cardiovascular History: Reports: None Respiratory History: Reports: None Gastrointestinal History: Reports: None Genitourinary History: Reports: None Musculoskeletal History: Reports: None Neurological History: Reports: None Psychiatric History: Reports: None Endocrine/Metabolic History: Reports: None Hematologic History: Reports: None Immunologic History: Reports: None Oncologic (Cancer) History: Reports: None Dermatologic History: Reports: None - Infectious Disease History Infectious Disease History: Reports: Chicken Pox - Past Surgical History Head Surgeries/Procedures: Reports: None Male Surgical History: Reports: None Musculoskeletal Surgical History: Reports: Other (See Below) Other Musculoskeletal Surgeries/Procedures:: left wrist sx Social & Family History - Family History Family Medical History: Noncontributory - Tobacco Use Smoking Status *Q: Never Smoker - Caffeine Use Caffeine Use: Reports: Energy Drinks, Soda - Recreational Drug Use Recreational Drug Use: No Review of Systems - Review of Systems Review Of Systems: Comprehensive ROS is negative, except as noted in HPI. ED EXAM, GENERAL - Physical Exam Exam: See Below (See dictation) Course - Vital Signs Last Recorded V/S: Last Vital Signs Temp 97.2 F 08/20/19 15:24 Pulse 55 L 08/20/19 15:24 Resp 16 08/20/19 15:24 BP 133/81 08/20/19 15:24 Pulse Ox 96 08/20/19 15:24 - Orders/Labs/Meds Orders: Active Orders 24 hr Category Date Time Status DME for Discharge [COMM] Stat Oth 08/20/19 15:35 Ordered Departure - Departure Time of Disposition: 15:53 Disposition: Home, Self-Care 01 Clinical Impression: Right wrist pain - Discharge Information Instructions: Carpal Tunnel Syndrome, [id number] Referrals: PCP,None [Primary Care Provider] - Forms: ED Department Discharge Additional Instructions: The following information is given to patients seen in the emergency department who are being discharged to home. This information is to outline your options for follow-up care. We provide all patients seen in our emergency department with a follow-up referral. The need for follow-up, as well as the timing and circumstances, are variable depending upon the specifics of your emergency department visit. If you don't have a primary care physician on staff, we will provide you with a referral. We always advise you to contact your personal physician following an emergency department visit to inform them of the circumstance of the visit and for follow-up with them and/or the need for any referrals to a consulting specialist. The emergency department will also refer you to a specialist when appropriate. This referral assures that you have the opportunity for follow-up care with a specialist. All of these measure are taken in an effort to provide you with optimal care, which includes your follow-up. Under all circumstances we always encourage you to contact your private physician who remains a resource for coordinating your care. When calling for follow-up care, please make the office aware that this follow-up is from your recent emergency room visit. If for any reason you are refused follow-up, please contact the [facility] Emergency Department at and asked to speak to the emergency department charge nurseShaun Gomez [facility] [address] [place] [address] [facility] [address] [place] [address] 1. Rest, ice, elevate the affected extremity. Will place patient in a cock-up wrist splint for comfort purposes and relieve pressure off of the median nerve. Would like you to wear for 1-2 weeks (Can wear at night and then when your most active during the day). 2. Tylenol and/or Ibuprofen as needed for pain management. 3. Please follow up with primary care or hand surgeon if pain continues. Return to the ED as needed and as discussed. Sepsis Event Note - Evaluation Sepsis Screening Result: No Definite Risk - Focused Exam Vital Signs: Vital Signs Temp Pulse Resp BP Pulse Ox 08/20/19 15:24 97.2 F 55 L 16 133/81 96 Date Exam was Performed: 08/20/19 Time Exam was Performed: 15:53 - My Orders Last 24 Hours: My Active Orders 08/20/19 15:35 DME for Discharge [COMM] Stat - Assessment/Plan Last 24 Hours: My Active Orders 08/20/19 15:35 DME for Discharge [COMM] Stat
--- NOTE | 2019-08-20 15:50 | CR ---
Right wrist: 3 views of the right wrist were obtained. Comparison: No previous wrist study. Joint spaces are preserved. No fracture, dislocation or other bony abnormality is appreciated. Impression: 1. No abnormality is appreciated on right wrist exam. Diagnostic code #1 This report was dictated in [place] Standard Time
== END 2019-08-20 16:00 | disposition home or self-care (01) ==
LOC: MW.ED 15:12
DX: M25.531 Pain in right wrist (principal)
CPT/HCPCS: 73110-26-RT; 73110-RT; 99283-25

== ENCOUNTER 2021-12-30 18:44 | Emergency (ER) | payer BC ==
[2021-12-30] MEDS ORDERED: Ketorolac 30 MG/ML SDV IM STA (20:28)
[2021-12-31 02:51] VITALS: BP 114/70; PULSE 78
== END 2021-12-30 20:55 | disposition home or self-care (01) ==
LOC: MW.ED 18:44
DX: R51.9 Headache, unspecified (principal); R09.81 Nasal congestion
CPT/HCPCS: 96372; 99283; J1885; 99282

== ENCOUNTER 2023-05-15 12:53 | Inpatient (IN) | payer BC ==
[2023-05-15] MEDS ORDERED: Sodium Chloride 0.9% 1,000 ML IV ONE (14:17)
[2023-05-15] MEDS ORDERED: cefTRIAXone 1 GM in Sodium Chloride 0.9% 50 ML IV ONE (14:21)
[2023-05-15] MEDS ORDERED: VANCOmycin 2 GM/400 ML 2 GM in Premix Bag 1 BAG IV ONE (14:45)
[2023-05-15 14:51] LABS: BASOPHILS ABSOLUTE AUTO 0.11 K/uL (0.00-0.20); BASOPHILS PERCENT AUTO 1.1 % (0.0-1.0); EOSINOPHILS ABSOLUTE AUTO 0.55 K/uL (0.00-0.45); EOSINOPHILS PERCENT AUTO 5.7 % (0.0-6.0); HEMATOCRIT 49.3 % (42.0-52.0); HEMOGLOBIN 17.3 g/dL (14.0-18.0); IMMATURE GRAN ABSOLUTE AUTO 0.03 K/uL (0.00-0.05); IMMATURE GRAN PERCENT AUTO 0.3 % (0.0-0.4); LYMPHOCYTES ABSOLUTE AUTO 1.51 K/uL (1.00-4.80); LYMPHOCYTES PERCENT AUTO 15.8 % (24.0-44.0); MEAN CORPUSCULAR HEMOGLOBIN 27.3 pg (28.0-32.0); MEAN CORPUSCULAR HGB CONC 35.1 g/dL (32.0-36.0); MEAN CORPUSCULAR VOLUME 77.9 fL (83.0-99.0); MEAN PLATELET VOLUME 8.9 fL (9.4-12.4); MONOCYTES ABSOLUTE AUTO 0.71 K/uL (0.00-0.80); MONOCYTES PERCENT AUTO 7.4 % (0.0-8.0); NEUTROPHILS ABSOLUTE AUTO 6.66 K/uL (1.80-7.70); NEUTROPHILS PERCENT AUTO 69.7 % (41.0-71.0); PLATELET COUNT,PLT 272 K/uL (150-400); RED BLOOD CELL COUNT 6.33 M/uL (4.52-5.90); WHITE BLOOD CELL COUNT,WBC 9.57 K/uL (3.9-11.3)
[2023-05-15 15:13] LABS: A/G RATIO 1.2 (0.9-1.6); ALBUMIN 4.3 g/dL (3.4-5.0); BILIRUBIN TOTAL 0.7 mg/dL (0.2-1.0); C-REACTIVE PROTEIN 0.3 mg/dL (<0.3); CALCIUM 9.3 mg/dL (8.5-10.1); CARBON DIOXIDE,CO2 25.7 mmol/L (21.0-32.0); CREATININE 1.3 mg/dL (0.8-1.3); EST CRCL DRUG DOSING (CG) 76.43 mL/min; PROTEIN TOTAL,TP 7.9 g/dL (6.4-8.2)
[2023-05-15 15:18] LABS: LACTIC ACID 1.3 mmol/L (0.4-2.0)
[2023-05-15] MEDS ORDERED: Acetaminophen 325 MG Tab PO PRN (16:25)
[2023-05-15] MEDS ORDERED: Sodium Chloride 0.9% 10 ML Syringe FLUSH PRN (16:25)
[2023-05-15] MEDS ORDERED: Sodium Chloride 0.9% 20 ML SDV IV PRN (16:25)
[2023-05-15] MEDS ORDERED: Sodium Chloride 0.9% 2.5 ML Syringe FLUSH PRN (16:25)
[2023-05-15] MEDS ORDERED: Ondansetron 4 MG/2 ML SDV IVPUSH PRN (16:28)
[2023-05-15] MEDS ORDERED: Polyethylene Glycol 3350 Powder 17 GM Packet PO PRN (16:28)
[2023-05-15] MEDS ORDERED: Albuterol/Ipratropium 3.0-0.5 MG/3 ML Neb Soln NEB PRN (16:28)
[2023-05-15] MEDS ORDERED: Sodium Chloride 0.9% 1,000 ML IV SCH (16:30)
[2023-05-15] MEDS ORDERED: Calcium Carbonate 500 MG Tab.Chew PO PRN (17:10)
[2023-05-15] MEDS ORDERED: Iopamidol 755 MG/ML 500 ML Multipack Bottle IVPUSH STA (17:10)
[2023-05-15] MEDS: Piperacillin/Tazobactam 4.5 GM in Sodium Chloride 0.9% 100 ML IV SCH ×2 (17:53→21:55)
[2023-05-15] MEDS: Pantoprazole 40 MG in Sodium Chloride 0.9% 10 ML IVPUSH SCH (17:55)
[2023-05-15] MEDS: Enoxaparin 40 MG/0.4 ML Syringe SUBCUT SCH (17:55)
[2023-05-15] MEDS: Sodium Chloride 0.9% 1,000 ML IV SCH (18:02)
[2023-05-16] MEDS: Sodium Chloride 0.9% 1,000 ML IV SCH (03:25)
[2023-05-16] MEDS: Piperacillin/Tazobactam 4.5 GM in Sodium Chloride 0.9% 100 ML IV SCH ×4 (05:08→22:08)
[2023-05-16 06:09] LABS: BASOPHILS ABSOLUTE AUTO 0.08 K/uL (0.00-0.20); BASOPHILS PERCENT AUTO 1.1 % (0.0-1.0); EOSINOPHILS PERCENT AUTO 8.3 % (0.0-6.0); HEMATOCRIT 43.5 % (42.0-52.0); HEMOGLOBIN 15.1 g/dL (14.0-18.0); IMMATURE GRAN ABSOLUTE AUTO 0.03 K/uL (0.00-0.05); IMMATURE GRAN PERCENT AUTO 0.4 % (0.0-0.4); LYMPHOCYTES ABSOLUTE AUTO 1.27 K/uL (1.00-4.80); LYMPHOCYTES PERCENT AUTO 17.6 % (24.0-44.0); MEAN CORPUSCULAR HEMOGLOBIN 27.3 pg (28.0-32.0); MEAN CORPUSCULAR HGB CONC 34.7 g/dL (32.0-36.0); MEAN CORPUSCULAR VOLUME 78.7 fL (83.0-99.0); MEAN PLATELET VOLUME 9.1 fL (9.4-12.4); MONOCYTES ABSOLUTE AUTO 0.55 K/uL (0.00-0.80); MONOCYTES PERCENT AUTO 7.6 % (0.0-8.0); NEUTROPHILS ABSOLUTE AUTO 4.68 K/uL (1.80-7.70); PLATELET COUNT,PLT 208 K/uL (150-400); RED BLOOD CELL COUNT 5.53 M/uL (4.52-5.90); WHITE BLOOD CELL COUNT,WBC 7.21 K/uL (3.9-11.3)
[2023-05-16 06:40] LABS: A/G RATIO 1.1 (0.9-1.6); ALBUMIN 3.3 g/dL (3.4-5.0); BILIRUBIN TOTAL 0.8 mg/dL (0.2-1.0); C-REACTIVE PROTEIN 0.29 mg/dL (<0.3); CALCIUM 8.3 mg/dL (8.5-10.1); CARBON DIOXIDE,CO2 23.8 mmol/L (21.0-32.0); CREATININE 1.3 mg/dL (0.8-1.3); EST CRCL DRUG DOSING (CG) 76.43 mL/min; MAGNESIUM 1.8 mg/dL (1.8-2.4); POTASSIUM,K 4.1 mmol/L (3.5-5.1); PROTEIN TOTAL,TP 6.3 g/dL (6.4-8.2)
[2023-05-16] MEDS: Enoxaparin 40 MG/0.4 ML Syringe SUBCUT SCH (16:22)
[2023-05-16] MEDS: Pantoprazole 40 MG in Sodium Chloride 0.9% 10 ML IVPUSH SCH (19:00)
[2023-05-17] MEDS: Piperacillin/Tazobactam 4.5 GM in Sodium Chloride 0.9% 100 ML IV SCH ×4 (04:34→21:51)
[2023-05-17 06:13] LABS: BASOPHILS ABSOLUTE AUTO 0.07 K/uL (0.00-0.20); BASOPHILS PERCENT AUTO 0.9 % (0.0-1.0); EOSINOPHILS PERCENT AUTO 6.8 % (0.0-6.0); IMMATURE GRAN ABSOLUTE AUTO 0.04 K/uL (0.00-0.05); IMMATURE GRAN PERCENT AUTO 0.5 % (0.0-0.4); LYMPHOCYTES ABSOLUTE AUTO 1.48 K/uL (1.00-4.80); MEAN CORPUSCULAR HEMOGLOBIN 27.3 pg (28.0-32.0); MEAN CORPUSCULAR HGB CONC 34.1 g/dL (32.0-36.0); MEAN PLATELET VOLUME 9.2 fL (9.4-12.4); MONOCYTES ABSOLUTE AUTO 0.57 K/uL (0.00-0.80); MONOCYTES PERCENT AUTO 7.7 % (0.0-8.0); NEUTROPHILS ABSOLUTE AUTO 4.73 K/uL (1.80-7.70); NEUTROPHILS PERCENT AUTO 64.1 % (41.0-71.0); PLATELET COUNT,PLT 190 K/uL (150-400); WHITE BLOOD CELL COUNT,WBC 7.39 K/uL (3.9-11.3)
[2023-05-17 06:41] LABS: A/G RATIO 1.1 (0.9-1.6); ALBUMIN 3.4 g/dL (3.4-5.0); BILIRUBIN TOTAL 0.7 mg/dL (0.2-1.0); CALCIUM 8.6 mg/dL (8.5-10.1); CARBON DIOXIDE,CO2 27.8 mmol/L (21.0-32.0); CREATININE 1.2 mg/dL (0.8-1.3); EST CRCL DRUG DOSING (CG) 82.8 mL/min; PROTEIN TOTAL,TP 6.5 g/dL (6.4-8.2)
[2023-05-17] MEDS: Mupirocin Oint 22 GM Tube TOP SCH (09:24)
[2023-05-17] MEDS: Enoxaparin 40 MG/0.4 ML Syringe SUBCUT SCH (17:55)
[2023-05-18] MEDS: Piperacillin/Tazobactam 4.5 GM in Sodium Chloride 0.9% 100 ML IV SCH (05:21)
[2023-05-18 06:23] LABS: BASOPHILS ABSOLUTE AUTO 0.09 K/uL (0.00-0.20); BASOPHILS PERCENT AUTO 1.2 % (0.0-1.0); EOSINOPHILS ABSOLUTE AUTO 0.47 K/uL (0.00-0.45); EOSINOPHILS PERCENT AUTO 6.1 % (0.0-6.0); HEMATOCRIT 44.9 % (42.0-52.0); HEMOGLOBIN 15.6 g/dL (14.0-18.0); IMMATURE GRAN ABSOLUTE AUTO 0.03 K/uL (0.00-0.05); IMMATURE GRAN PERCENT AUTO 0.4 % (0.0-0.4); LYMPHOCYTES ABSOLUTE AUTO 1.54 K/uL (1.00-4.80); LYMPHOCYTES PERCENT AUTO 19.9 % (24.0-44.0); MEAN CORPUSCULAR HEMOGLOBIN 27.8 pg (28.0-32.0); MEAN CORPUSCULAR HGB CONC 34.7 g/dL (32.0-36.0); MEAN CORPUSCULAR VOLUME 79.9 fL (83.0-99.0); MEAN PLATELET VOLUME 9.2 fL (9.4-12.4); MONOCYTES ABSOLUTE AUTO 0.55 K/uL (0.00-0.80); MONOCYTES PERCENT AUTO 7.1 % (0.0-8.0); NEUTROPHILS ABSOLUTE AUTO 5.06 K/uL (1.80-7.70); NEUTROPHILS PERCENT AUTO 65.3 % (41.0-71.0); PLATELET COUNT,PLT 203 K/uL (150-400); RED BLOOD CELL COUNT 5.62 M/uL (4.52-5.90); WHITE BLOOD CELL COUNT,WBC 7.74 K/uL (3.9-11.3)
[2023-05-18 06:56] LABS: ALBUMIN 3.5 g/dL (3.4-5.0); BILIRUBIN TOTAL 0.4 mg/dL (0.2-1.0); CALCIUM 8.6 mg/dL (8.5-10.1); CARBON DIOXIDE,CO2 25.8 mmol/L (21.0-32.0); CREATININE 1.2 mg/dL (0.8-1.3); EST CRCL DRUG DOSING (CG) 82.8 mL/min; PROTEIN TOTAL,TP 6.9 g/dL (6.4-8.2)
[2023-05-18] MEDS: Mupirocin Oint 22 GM Tube TOP SCH (10:11)
[2023-05-18 12:00] VITALS: BP 153/97; PULSE 60
[2023-05-18] MEDS ORDERED: Pantoprazole 40 MG Tab.CR PO SCH (18:00)
== END 2023-05-18 12:25 | disposition home or self-care (01) | DRG 383 ==
LOC: MW.ED 12:53 → MW.MS 16:11
PROVIDERS: ADMIT Family Medicine; ATTEND Family Medicine
DX: L03.115 Cellulitis of right lower limb (principal); H54.7 Unspecified visual loss; Z79.899 Other long term (current) drug therapy
CPT/HCPCS: 36415; 73590-26-RT; 73590-RT; 73701-26-RT; 73701-RT; 80053; 80202; 83605; 83735; 85025; 85652; 86140; 87040; 87070; 87075; 87205; 96365; 96367; 99221; 99231; 99239; 99284; 99284-25; A9270-GY; C9113; J0696; J1650; J2543; J3370; J3490; J7030; J7050; Q9967

== ENCOUNTER 2024-10-15 22:39 | Emergency (ER) | payer BC ==
[2024-10-16 01:04] VITALS: BP 165/95; PULSE 82
== END 2024-10-16 01:07 | disposition home or self-care (01) ==
LOC: MW.ED 22:39
DX: T18.128A Food in esophagus causing other injury, initial encounter (principal); W44.F3XA Food entering into or through a natural orifice, initial encounter; Y93.89 Activity, other specified
CPT/HCPCS: 99282; 99283